=== PATIENT | female | born 1990 | race Caucasian/White ===

== ENCOUNTER 2016-07-12 14:42 | Emergency (ER) | payer OTHER ==
[~2016-07-12] VITALS: Ht 170.2 cm; Wt 84.4 kg
[2016-07-12 14:49] VITALS: BP 147/66
--- NOTE | 2016-07-12 15:39 | RAD ---
EXAM: Right ankle, 3 views; right knee, 3 views. HISTORY: Pain. COMPARISON: None. FINDINGS: Right knee: Frontal, lateral and oblique views of the right knee are obtained. There is no fracture, dislocation or subluxation. No effusion is seen. Right ankle: Frontal, lateral and mortise views of the right ankle are obtained. There is no fracture, dislocation or subluxation. The ankle mortise is intact. No osteochondral lesion is seen. IMPRESSION: No acute osseous finding.
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
[2016-07-12] MEDS ORDERED: ONDANSETRON ODT 4 MG TAB.RAPDIS PO ONE (16:15)
[2016-07-12] MEDS ORDERED: HYDROCODONE/APAP 10/325 TABLET. PO ONE (16:15)
--- NOTE | 2016-07-12 16:50 | RAD ---
Right tibia and fibula, 2 views, 07/12/2016: History: Work injury No fracture or bony abnormality is detected. The soft tissues are unremarkable. IMPRESSION: No significant abnormality is detected.
[2016-07-12] MEDS ORDERED: NAPR500T3 PO (17:13)
[2016-07-12] MEDS ORDERED: HYDR-965 PO (17:13)
== END 2016-07-12 17:31 | disposition home or self-care (01) ==
LOC: ER 14:42
DX: S86.911A Strain of unspecified muscle(s) and tendon(s) at lower leg level, right leg, initial encounter (principal); F17.210 Nicotine dependence, cigarettes, uncomplicated; X58.XXXA Exposure to other specified factors, initial encounter; Y93.89 Activity, other specified; Y92.89 Other specified places as the place of occurrence of the external cause; Y99.8 Other external cause status
CPT/HCPCS: 73562; 73590; 73610; 99284; Q0162

== ENCOUNTER 2016-09-07 16:22 | Emergency (ER) | payer SELFPAY ==
[~2016-09-07] VITALS: Ht 162.6 cm; Wt 78.5 kg
[~2016-09-07 16:22] MED LIST: HYDR-965 PO; NAPR500T3 PO
[2016-09-07 16:29] VITALS: BP 146/71
[2016-09-07] MEDS ORDERED: IV NORMAL SALINE 1,000ML 1,000 ML IV SCH (16:50)
--- NOTE | 2016-09-07 16:55 | PHYS DOC ---
Text Text Patient abdomen soft, nonsurgical my evaluation. HCG Quant is below the discriminatory zone. Ultrasound shows possible early intrauterine gestational sac and possible left wrist luteal cyst. Further monitoring symptoms and serial hCG on testing recommended to exclude ectopic . Discussed this in detail with the patient is familiar with ectopic and possible complications. In the meantime, I will treat patient nausea with instructions to follow-up with PCP and/or OB. Return precautions reviewed. Courtesy work note provided. (KADIE GUZMAN DO) General Chief Complaint: ABDOMINAL PAIN Stated Complaint: ABD/BACK PAIN Time Seen by MD: 16:42 Source: patient Exam Limitations: no limitations Problems: (INDU CUELLAR DO) Time Seen by MD: 18:39 Problems: (KADIE GUZMAN DO) History of Present Illness Initial Comments Pt is 26/F to ED c/o abdominal discomfort, n/v. Pt states past two to three days she's had low abdominal discomfort radiating to b/l flank, n/v/d. She's vomitted "twice a day" and has had intermittent loose stools and constipation. No dysuria/vaginal symptoms, +frequency/ hesitancy of urine. No measured fevers, pt has had global mild GURROLA when up and active. Abdominal discomfort crampy/pressure moderate, no exacerbating/ relieving factors. No bad food exposure/travel. Pt is 9mos , sexually active no contraception LMP approx 6 weeks ago. Timing/Duration: constant (3 days) Severity: moderate Modifying Factors: worse with eating, worse with movement, improves with rest Associated Symptoms: malaise, nausea/vomiting, other (INDU CUELLAR DO) Allergies: Coded Allergies: No Known Drug Allergies (Unverified , 07/12/16) Past Medical History Medical History: no pertinent history Surgical History: noncontributory (CS) (INDU CUELLAR DO) Social History Smoker: cigarettes Alcohol: occasionally Drugs: none (INDU CUELLAR DO) Review of Systems Constitutional: denies chills, denies fever, malaise Respiratory: denies cough, denies shortness of breath, denies wheezing Cardiovascular: denies chest pain, denies palpitations, denies syncope Gastrointestinal: see HPI Genitourinary: denies dysuria, denies frequency, denies hematuria Musculoskeletal: denies back pain, denies joint swelling, denies neck pain Psychiatric/Neurological: see HPI, denies numbness, denies paresthesia, denies weakness Hematologic/Lymphatic: denies blood clots, denies easy bleeding, denies easy bruising (INDU CUELLAR DO) Physical Exam General Appearance: WD/WN, mild distress Eyes: bilateral eye normal inspection, bilateral eye PERRL, bilateral eye EOMI Ear, Nose, Throat: hearing grossly normal, normal ENT inspection, normal pharynx (dry membranes) Neck: non-tender, supple Respiratory: normal breath sounds, no respiratory distress Cardiovascular: normal peripheral pulses, tachycardia Gastrointestinal: soft (ND, BS normal, suprapubic TTP no r/g/mass) Back: no vertebral tenderness, CVA tenderness (R), CVA tenderness (L) Extremities: non-tender, normal inspection 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 See his documentation for results/disposition. (INDU CUELLAR DO) INDU CUELLAR DO September 07, 2016 16:55 KADIE GUZMAN DO September 08, 2016 00:21
[2016-09-07] MEDS ORDERED: MORPHINE SULFATE 2 MG/ML DISP.SYRIN. IV/SQ PRN (17:00)
[2016-09-07] MEDS ORDERED: ONDANSETRON PF 4 MG/2 ML VIAL. IV ONE (17:15)
[2016-09-07] MEDS ORDERED: FAMOTIDINE 20 MG/2 ML VIAL IVP ONE (17:15)
[2016-09-07 18:09] LABS: BASO # 0.1 x10^3/uL (0.0-0.2); BASO % 1 % (0-3); EOS # 0.3 x10^3/uL (0.0-0.7); EOS % 3 % (0-3); HEMATOCRIT 37.7 % (36.0-47.0); HEMOGLOBIN 12.5 g/dL (12.0-15.5); LYMPH # 2.9 x10^3/uL (1.0-4.8); LYMPH % 25 % (24-48); MEAN CORPUSCULAR HEMOGLOBIN 28 pg (25-35); MEAN CORPUSCULAR HGB CONC 33 g/dL (31-37); MEAN CORPUSCULAR VOLUME 83 fL (79-100); MONO # 0.7 x10^3/uL (0.0-1.1); MONO % 6 % (0-9); NEUT # 7.6 x10^3uL (1.8-7.7); NEUT % 65 % (31-73); PLATELET COUNT 568 x10^3/uL (140-400); RED BLOOD COUNT 4.54 x10^6/uL (3.50-5.40); RED CELL DISTRIBUTION WIDTH 14.5 % (11.5-14.5); WHITE BLOOD COUNT 11.7 x10^3/uL (4.0-11.0)
[2016-09-07 18:21] LABS: ALBUMIN 3.6 g/dL (3.4-5.0); ALBUMIN/GLOBULIN RATIO 0.8 (1.0-1.7); CALCIUM 9.5 mg/dL (8.5-10.1); CREATININE 0.8 mg/dL (0.6-1.0); POTASSIUM 3.6 mmol/L (3.5-5.1); TOTAL BILIRUBIN 0.2 mg/dL (0.2-1.0); TOTAL PROTEIN 8.1 g/dL (6.4-8.2)
[2016-09-07 19:28] LABS: PREG TEST PT QUAL POSITIVE (NEG)
[2016-09-07 19:33] LABS: BILIRUBIN,URINE NEG (NEG); CLARITY,URINE CLOUDY; COLOR,URINE YELLOW; GLUCOSE,URINE NEG (NEG)
[2016-09-07 19:34] LABS: NITRITE,URINE NEG (NEG); UROBILINOGEN,URINE 1 mg/dL (0.2 mg/dL)
[2016-09-07 19:40] LABS: BACTERIA,URINE FEW /HPF (0-FEW); SQUAMOUS EPITHELIAL CELL,UR MOD /LPF; WBC,URINE 20-40 /HPF (0-4)
[2016-09-07] MEDS ORDERED: cefTRIAXone SODIUM 1 GM VIAL IV ONE (19:59)
[2016-09-07] MEDS ORDERED: IV NORMAL SALINE 50ML 50 ML ONE (19:59)
--- NOTE | 2016-09-07 20:54 | RAD ---
OB <14 WKS W/TV History: Pelvic pain for 2 days Comparison: None. Findings: Multiple transabdominal sonographic images of the pelvis are submitted. Right ovary measured 3.8 x 3.3 x 3.2 cm. There is a questionable focus of hypoechogenicity of the right ovary on the order of 2.5 by 2.3 x 2.8 cm. Left ovary is not well visualized. Uterus is suboptimally visualized, transverse measurement of 5.2 cm. Transvaginal ultrasound: Multiple transvaginal sonographic images of the pelvis are submitted. Uterus measures 7.9 x 5.1 x 4.6 cm. Left ovary measured 3 x 1.6 x 1.9 cm. There is a focus of relative hypoechogenicity of the left ovary up to 1.1 x 0.7 x 1.3 cm. There is normal color flow and low resistance vascularity of the left ovary. Right ovary measured 3.4 x 1.8 x 1.7 cm with normal low resistance vascularity, no discrete abnormality demonstrated on transvaginal ultrasound. Endometrium is thickened up to 1.4 cm. There is a small oblong focus of hypoechogenicity in the endometrial cavity, uncertain if a gestational sac. If this represents a gestational sac, mean sac dimension of 0.45 cm corresponds with 5 weeks 2 days. Adjusted ultrasound age is 5 weeks 2 days with estimated delivery date 05/08/2017. No pole is demonstrated if this does indeed represent a gestational sac. Impression: 1. There is a small focus of hypoechogenicity in the endometrial cavity, uncertain if a small gestational sac. Short-term follow and correlation with quantitative beta hCG values may be beneficial. If this does indeed represent a gestational sac, adjusted ultrasound age is 5 weeks 2 days with estimated delivery date of 05/08/2017. 2. Focus of different echogenicity of the left ovary may be a corpus luteal cyst. No free fluid is demonstrated. Electronically signed by: Benoit Lam MD (09/07/2016 8:51 PM)
--- NOTE | 2016-09-08 01:37 | EKG ---
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
== END 2016-09-07 21:24 | disposition home or self-care (01) ==
LOC: ER 16:22
DX: R10.31 Right lower quadrant pain (principal); R10.32 Left lower quadrant pain; R11.2 Nausea with vomiting, unspecified; R19.7 Diarrhea, unspecified; Z33.1 Pregnant state, incidental; F17.210 Nicotine dependence, cigarettes, uncomplicated
CPT/HCPCS: 36415; 76801; 76817; 80053; 81001; 83605; 83690; 84702; 84703; 85027; 87040; 87086; 93005; 96361; 96365; 99285; J0696; 81025; J7030

== ENCOUNTER 2017-04-05 18:12 | Emergency (ER) | payer BC ==
[~2017-04-05] VITALS: Ht 162.6 cm; Wt 92.1 kg
[~2017-04-05 18:12] MED LIST changes: -NAPR500T3 PO; +NAPR500T4 PO
[2017-04-05 18:30] VITALS: BP 122/75
[2017-04-05] MEDS ORDERED: SULF1TAB24 PO (19:00)
[2017-04-05] MEDS ORDERED: PHEN100T82 PO (19:00)
[2017-04-05] MEDS ORDERED: ONDA4TAB10 PO (19:00)
--- NOTE | 2017-04-05 19:03 | PHYS DOC ---
General Chief Complaint: BACK PAIN OR INJURY Stated Complaint: HIP/BACK PAIN Time Seen by MD: 18:40 Source: patient Exam Limitations: no limitations Problems: History of Present Illness Initial Comments Patient is a 26-year-old female who comes to the ED complaining of left flank pain. Patient denies any injury, she states she's had intermittent left flank pain worsening for the past 4 days. She's had frequency and hesitancy of urine no dysuria or hematuria. Denies any lower extremity weakness no saddle anesthesia or new incontinence. She's had some mild chills no measured fevers no vomiting. ED vital signs are stable. Timing/Duration: other Severity: severe Modifying Factors: worse with movement, improves with rest Associated Symptoms: other Allergies: Coded Allergies: pineapple (Verified Allergy, Unknown, 04/05/17) Past Medical History Medical History: no pertinent history Surgical History: noncontributory ( section, partial hysterectomy) Social History Smoker: cigarettes Alcohol: none Drugs: none Review of Systems Constitutional: chills, denies diaphoresis, denies fever, denies malaise Respiratory: denies cough, denies shortness of breath Cardiovascular: denies chest pain, denies palpitations Gastrointestinal: denies abdominal pain, denies constipation, denies diarrhea, denies nausea, denies vomiting Genitourinary: see HPI Musculoskeletal: see HPI, denies joint swelling, denies muscle pain, denies neck pain Psychiatric/Neurological: denies headache, denies numbness, denies paresthesia Hematologic/Lymphatic: denies blood clots, denies easy bleeding, denies easy bruising Physical Exam General Appearance: mild distress, obese Ear, Nose, Throat: hearing grossly normal, normal ENT inspection Neck: non-tender, supple Respiratory: normal breath sounds, no respiratory distress Cardiovascular: normal peripheral pulses, regular rate, rhythm Gastrointestinal: normal bowel sounds, non tender, soft Back: no vertebral tenderness, CVA tenderness (L) Extremities: non-tender, normal inspection 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 I discussed [id number]-[id number] and prescription medications as well as indications for urgent return to the department. I recommended oral hydration and smoking cessation, patient's questions were answered she expressed agreement and understanding of treatment plan. Departure Time of Disposition: 19:02 Disposition: 01 HOME, SELF-CARE Diagnosis: left pyelonephritis Condition: GOOD Patient Instructions: Pyelonephritis, Adult, [id number] Additional Instructions: Please review the patient education materials given by ED staff. Aggressive hydration with Gatorade and water. Qecm-alz-puzibbi Tylenol and ibuprofen as needed. No driving or operating machinery while sedated with medications received in the emergency department. Prescription: Zofran ODT, Bactrim DS, Pyridium Follow-up with your doctor in 10-14 days for recheck of symptoms and to go over urine culture results. Return to ED with new or changing symptoms. INDU CUELLAR DO Apr 05, 2017 19:03
[2017-04-05] MEDS ORDERED: HYDROcodone/APAP 10/325 1 TAB TABLET PO ONE (19:15)
[2017-04-05] MEDS ORDERED: SMZ/TMP 800/160MG TABLET. PO ONE (19:15)
[2017-04-05] MEDS ORDERED: PHENAZOPYRIDINE 100 MG TABLET. PO ONE (19:15)
[2017-04-05] MEDS ORDERED: ONDANSETRON ODT 4 MG TAB.RAPDIS PO ONE (19:15)
[2017-04-05 19:29] LABS: COLOR,URINE YELLOW
[2017-04-05 19:30] LABS: BACTERIA,URINE FEW /HPF (0-FEW); BILIRUBIN,URINE NEG (NEG); CLARITY,URINE CLOUDY; GLUCOSE,URINE NEG (NEG); NITRITE,URINE NEG (NEG); SQUAMOUS EPITHELIAL CELL,UR MANY /LPF; UROBILINOGEN,URINE 0.2 mg/dL (0.2 mg/dL); WBC,URINE 20-40 /HPF (0-4)
== END 2017-04-05 19:20 | disposition home or self-care (01) ==
LOC: ER 18:12
DX: N12 Tubulo-interstitial nephritis, not specified as acute or chronic (principal); F17.210 Nicotine dependence, cigarettes, uncomplicated; Z98.890 Other specified postprocedural states; Z91.018 Allergy to other foods
CPT/HCPCS: 81001; 81025; 87086; 99284; Q0162

== ENCOUNTER 2020-04-18 19:35 | Emergency (ER) | payer SELFPAY ==
[~2020-04-18] VITALS: Ht 162.6 cm; Wt 87.8 kg
[~2020-04-18 19:35] MED LIST changes: +HYDR-3166 PO; -HYDR-965 PO; +NAPR-514 PO; -NAPR500T4 PO; +ONDA4TAB10 PO; +PHEN100T82 PO; +SULF1TAB24 PO
[2020-04-18 19:46] VITALS: BP 153/78
--- NOTE | 2020-04-18 20:55 | PHYS DOC ---
Past History Past Medical History: No Pertinent History (MALACHI MONTEZ APRN) Past Surgical History: , Hysterectomy, Other Additional Past Surgical Histo: ectopic - tube and ovary removal (MALACHI MONTEZ APRN) Alcohol Use: None Drug Use: None (MALACHI MONTEZ APRN) General Adult EDM: Chief Complaint: KNEE INJURY HPI: HPI: Patient is a 29-year-old female who presents with right knee pain. Patient states that she was walking on the sidewalk when she turned back around and twisted her knee. "I heard a pop, and have pain on the back of my right knee ". Patient states the incident occurred 2 weeks ago and she has been taking ibuprofen at home with no relief. Patient states she is unable to put any weight on her leg. (MALACHI MONTEZ APRN) Review of Systems: Review of Systems: Constitutional: Denies fever or chills Eyes: Denies change in visual acuity HENT: Denies nasal congestion or sore throat Respiratory: Denies cough or shortness of breath Cardiovascular: Denies chest pain or edema GI: Denies abdominal pain, nausea, vomiting, bloody stools or diarrhea : Denies dysuria Musculoskeletal: Denies back pain or joint pain , reports right-sided knee pain. Integument: Denies rash Neurologic: Denies headache, focal weakness or sensory changes Endocrine: Denies polyuria or polydipsia Lymphatic: Denies swollen glands Psychiatric: Denies depression or anxiety (MALACHI MONTEZ APRN) Allergies: Allergies: Allergies Coded Allergies Type Severity Reaction Last Updated Verified pineapple Allergy Unknown 04/05/17 Yes (MALACHI MONTEZ APRN) Physical Exam: PE: Constitutional: Well developed, well nourished, no acute distress, non-toxic appearance. [] HENT: Normocephalic, atraumatic, bilateral external ears normal, oropharynx moist, no oral exudates, nose normal. [] Eyes: PERRLA, EOMI, conjunctiva normal, no discharge. [] Neck: Normal range of motion, no tenderness, supple, no stridor. [] Cardiovascular:Heart rate regular rhythm, no murmur [] Lungs & Thorax: Bilateral breath sounds clear to auscultation [] Abdomen: Bowel sounds normal, soft, no tenderness, no masses, no pulsatile masses. [] Skin: Warm, dry, no erythema, no rash. [] Back: No tenderness, no CVA tenderness. [] Extremities: Tenderness to right-sided knee, unable to bear weight, no cyanosis, no clubbing, ROM intact, no edema. [] Neurologic: Alert and oriented X 3, normal motor function, normal sensory function, no focal deficits noted. [] Psychologic: Affect normal, judgement normal, mood normal. [] (MALACHI MONTEZ APRN) Current Patient Data: Vital Signs: Vital Signs Date Time Temp Pulse Resp B/P (MAP) Pulse Ox O2 Delivery O2 Flow Rate FiO2 04/18/20 19:46 97.8 100 15 153/78 (103) 98 Room Air (MALACHI MONTEZ APRN) EKG: EKG: [] (MALACHI MONTEZ APRN) Radiology/Procedures: Radiology/Procedures: []XR KNEE 4 VIEWS WITH PATELLA_RT DATE: 04/18/2020 8:52 PM INDICATION: Reason: twisted her knee while walking, 2 WEEKS AGO / Spl. Instructions: / History: COMPARISON: None. FINDINGS: Bones: There is no evidence of acute fracture or dislocation. Joints: The joint spaces are normal. There is no joint effusion. Miscellaneous: None. IMPRESSION: No evidence of acute fracture. Electronically signed by: Benoit Marx MD (04/18/2020 9:15 PM) BRANDYN (MALACHI MONTEZ APRN) Heart Score: Risk Factors: Risk Factors: DM, Current or recent (<one month) smoker, HTN, HLP, family history of CAD, obesity. Risk Scores: Score 0 - 3: 2.5% MACE over next 6 weeks - Discharge Home Score 4 - 6: 20.3% MACE over next 6 weeks - Admit for Clinical Observation Score 7 - 10: 72.7% MACE over next 6 weeks - Early Invasive Strategies (MALACHI MONTEZ APRN) Course & Med Decision Making: Course & Med Decision Making Pertinent Labs and Imaging studies reviewed. (See chart for details) []Patient is a 29-year-old female who presents with right knee pain. Patient states that she was walking on the sidewalk when she turned back around and twisted her knee. "I heard a pop, and have pain on the back of my right knee ". Patient states the incident occurred 2 weeks ago and she has been taking ibuprofen at home with no relief. Patient states she is unable to put any w eight on her leg. X-ray ordered for right knee. Hydrocodone ordered for pain. Knee xray negative for acute fracture. Will send home with script for pain medication. Patient to f/u with PCP for further evaluation if pain persists. (MALACHI MONTEZ APRN) Dragon Disclaimer: Dragon Disclaimer: This electronic medical record was generated, in whole or in part, using a voice recognition dictation system. (MALACHI MONTEZ APRN) Departure Departure: Impression: Primary Impression: Knee injury Disposition: 01 DC HOME SELF CARE/HOMELESS Condition: IMPROVED Referrals: PCP,NO (PCP) Patient Instructions: Knee Pain, Fqlq-zy-Aozt Additional Instructions: Continue to take ibuprofen and Tylenol for discomfort. Follow-up with your primary care physician for further evaluation. X-ray of your knee in the emergency room today was negative for acute fracture. EMERGENCY DEPARTMENT GENERAL DISCHARGE INSTRUCTIONS Thank you for coming to [facility] (ED) today and trusting us with you care. We trust that you had a positivie experience in our Emergency Department. If you wish to speak to the department management, you may call the director at [phone]. YOUR FOLLOW UP INSTRUCTIONS ARE FOLLOWS: 1. Do you have a private Doctor? If you do not have a private doctor, please ask for a resource list of physicians or clinics that may be able to assist you with follow up care. 2. The Emergency Physician has interpreted your x-rays. The X-Ray specialist will also review them. If there is a change in the findings, you will be notified in 48 hours when at all possible. 3. A lab test or culture has been done, your results will be reviewed and you will be notified if you need a change in treatment. ADDITIONAL INSTRUCTIONS AND INFORMATION: 1. Your care today has been supervised by a physician who is specially trained in emergency care. Many problems require more than one evaluation for a complete diagnosis and treatment. We recommend that you schedule your follow up appointment as recommended to ensure complete treatment of you illness or injury. If you are unable to obtain follow up care and continue to have a problem, or if your condition worsens, we recommend that you return to the ED. 2. We are not able to safely determine your condition over the phone nor are we able to give sound medical advice over the phone. For these safety reasons, if you call for medical advice we will ask you to come to the ED for further evaluation. 3. If you have any questions regarding these discharge instructions please call the ED at [phone]. SAFETY INFORMATION: In the interest of safety, wellness, and injury prevention; we encourage you to wear your sealbelt, if you smoke; quite smoking, and we encourage family to use a protective helmet for bicycling and other sporting events that present an increased risk for head injury. IF YOUR SYMPTOMS WORSEN OR NEW SYMPTOMS DEVELOP, OR YOU HAVE CONCERNS ABOUT YOUR CONDITION; OR IF YOUR CONDITION WORSENS WHILE YOU ARE WAITING FOR YOUR FOLLOW UP APPOINTMENT; EITHER CONTACT YOUR PRIMARY CARE DOCTOR, THE PHYSICIAN WHOSE NAME AND NUMBER YOU WERE GIVEN, OR RETURN TO THE ED IMMEDIATELY. Scripts Hydrocodone/Acetaminophen (Hydrocodone-Acetamin 5-325 mg) 1 Each Tablet 1 EACH PO Q6HRS for pain, #8 TAB Prov: MALACHI MONTEZ APRN 04/18/20 Attending Co-Sign Attending Co-Sign The patient was seen and interviewed as well as examined at the bedside. The chart was reviewed. The case was discussed. Agree with the plan of care. (TEODORO JUNE MD) Attending Signature Attending Signature I have participated in the care of this patient and I have reviewed and agree with all pertinent clinical information above including history, exam, and recommendations. (TEODORO JUNE MD) Dragon Disclaimer This chart was dictated in whole or in part using Voice Recognition software in a busy, high-work load, and often noisy Emergency Department environment. It may contain unintended and wholly unrecognized errors or omissions. (TEODORO JUNE MD) MALACHI MONTEZ APRN Apr 18, 2020 20:55 TEODORO JUNE MD Apr 20, 2020 18:51
[2020-04-18] MEDS ORDERED: HYDROcodone/APAP 5/325MG 1 TAB TABLET PO ONE (21:00)
--- NOTE | 2020-04-18 21:18 | RAD ---
XR KNEE 4 VIEWS WITH PATELLA_RT DATE: 04/18/2020 8:52 PM INDICATION: Reason: twisted her knee while walking, 2 WEEKS AGO / Spl. Instructions: / History: COMPARISON: None. FINDINGS: Bones: There is no evidence of acute fracture or dislocation. Joints: The joint spaces are normal. There is no joint effusion. Miscellaneous: None. IMPRESSION: No evidence of acute fracture. Electronically signed by: Benoit Marx MD (04/18/2020 9:15 PM) BRANDYN
[2020-04-18] MEDS ORDERED: HYDR-2759 PO ×2 (21:29→21:36)
== END 2020-04-18 21:38 | disposition home or self-care (01) ==
LOC: ER 19:35
DX: S89.91XA Unspecified injury of right lower leg, initial encounter (principal); Z91.018 Allergy to other foods; X50.9XXA Other and unspecified overexertion or strenuous movements or postures, initial encounter; Y93.01 Activity, walking, marching and hiking; Y92.89 Other specified places as the place of occurrence of the external cause; Y99.8 Other external cause status
CPT/HCPCS: 73564; 99283